=== PATIENT | female | born 1960 | race American Indian/Alaskan Native ===

== ENCOUNTER 2018-04-13 15:15 | Outpatient (CLI) | payer OTHER | END 2018-04-13 15:16 | disposition home or self-care (01) | LOC: BICMAMMO 15:15 | PROVIDERS: ATTEND Family Medicine | DX: Z12.31 Encounter for screening mammogram for malignant neoplasm of breast (principal); Z80.3 Family history of malignant neoplasm of breast; Z85.850 Personal history of malignant neoplasm of thyroid | CPT/HCPCS: 77063; 77067 ==

== ENCOUNTER 2018-09-25 10:13 | Day surgery (SDC) | payer OTHER ==
--- NOTE | 2018-09-24 14:02 | HP ---
HISTORY OF PRESENT ILLNESS: Hansa Vasquez is a 58-year-old female, comes for a colonoscopy for colon cancer screening. The patient has no specific GI symptoms. Her bowel movements are regular. The patient has history of IBS-D over the years and has history of diarrhea off and on. There is no family history of colon cancer. ALLERGIES: NONE. SOCIAL HISTORY: Former smoker. Does not drink alcohol. MEDICAL ILLNESS: 1. Hypertension. 2. Hypothyroidism. 3. Thyroidectomy for cancer. 4. Complete hysterectomy. 5. Appendectomy. 6. Cholecystectomy. 7. Ankylosing spondylitis. 8. Multiple laparoscopies for endometriosis. PHYSICAL EXAMINATION: VITAL SIGNS: Pulse is 70 and blood pressure 120/70. HEENT: Conjunctivae clear. NECK: Supple. No adenitis or thyromegaly noted. CARDIOVASCULAR SYSTEM: First and second heart sounds normal. LUNGS: Clear to auscultation. ABDOMEN: Soft to palpate. No organomegaly. No tenderness. No masses. EXTREMITIES: No edema. ADMITTING DIAGNOSIS: A 58-year-old female comes for a colonoscopy for colon cancer screening. Job ID: [id number]
[2018-09-24 14:19] VITALS: BMI 27.2
[2018-09-25] MEDS ORDERED: Lidocaine 1% PF 5 ML VIAL ONE (16:49)
[2018-09-25] MEDS ORDERED: PROPOFOL 200 MG/20 ML VIAL ONE (16:49)
--- NOTE | 2018-09-28 10:40 | OP ---
DATE OF PROCEDURE: 09/25/2018 OPERATIVE PROCEDURE: Colonoscopy with polypectomy, biopsy. PREOPERATIVE DIAGNOSIS: Colon cancer screening. POSTOPERATIVE DIAGNOSIS: 1. Sessile polyp versus thickened mucosa cecum, biopsied. 2. Sessile sigmoid colon polyp, status post polypectomy. DESCRIPTION OF PROCEDURE: The patient was placed on her left lateral position and was given sedation by Anesthesia Department. A rectal exam was done before the scope was advanced into the rectum. No lesions felt on rectal exam. A [employer] video colonoscope was introduced into the rectum and advanced all the way to the cecum. The prep is good. The mucosa appears normal throughout the colon. The appendicular opening, ileocecal area, no pathology. Over the cecal area, patient was found to have a sessile polyp versus thickened mucosa. This was biopsied. The ascending colon, hepatic flexure, no pathology seen. The transverse colon, splenic flexure, descending colon, no pathology. A sessile sigmoid colon polyp removed with snare cautery with good hemostasis. Rectal hemorrhoids. DISCHARGE PLAN: A 58-year-old female came for colonoscopy for colon cancer. She underwent colonoscopy, polypectomy, and biopsy. DISCHARGE RECOMMENDATION: 1. Patient was advised to call me if she develops abdominal pain, hematochezia. 2. In the absence of any of the symptoms, come back to me in 2 weeks. Job ID: [id number]
== END 2018-09-25 12:55 | disposition home or self-care (01) ==
LOC: SDC 10:13
PROVIDERS: ATTEND Internal Medicine Gastroenterology
PROC: 0DBN8ZX Excision of Sigmoid Colon, Via Natural or Artificial Opening Endoscopic, Diagnostic (ICD-10-PCS; principal; 2018-09-25)
PROC: 0DBH8ZX Excision of Cecum, Via Natural or Artificial Opening Endoscopic, Diagnostic (ICD-10-PCS; principal; 2018-09-25)
DX: Z12.11 Encounter for screening for malignant neoplasm of colon (principal); D12.5 Benign neoplasm of sigmoid colon; K64.4 Residual hemorrhoidal skin tags; K58.0 Irritable bowel syndrome with diarrhea; I10 Essential (primary) hypertension; M45.9 Ankylosing spondylitis of unspecified sites in spine; E89.0 Postprocedural hypothyroidism; Z87.891 Personal history of nicotine dependence; Z79.899 Other long term (current) drug therapy
CPT/HCPCS: 88305; J2001; J2704